=== PATIENT | female | born 1930 | race Caucasian/White ===

== ENCOUNTER 2017-08-29 18:00 | Inpatient (IN) | payer MEDICARE ==
[~2017-08-29] VITALS: Ht 149.9 cm; Wt 38.8 kg
[2017-08-29 20:38] LABS: BASOPHILS 0.1 % (0-2); EOSINOPHILS 0.1 % (0-7); HEMATOCRIT 30.8 % (36.0-48.0); HEMOGLOBIN 11.8 g/dL (12-16); IMMATURE GRANULOCYTES 0.3 % (0-5); LYMPHOCYTES 15.3 % (15-50); MCH 38.3 pg (26.0-34.0); MCHC 38.3 g/dL (31.0-37.0); NEUTROPHILS 72.2 % (40-80); PLATELET COUNT 81 10x3/uL (130-400); RBC 3.08 10x6/uL (4.00-5.40); RDW 14.3 % (11.5-14.5); WBC 9.8 10x3/uL (4.8-10.8)
[2017-08-29 20:39] LABS: ALBUMIN 2.9 g/dL (3.4-5.0); ALKALINE PHOSPHATASE 72 U/L (46-116); ALT (SGPT) 15 U/L (10-68); BILIRUBIN - TOTAL 0.11 mg/dL (0.2-1.3); CALC OSMOLALITY 303 mosm/kg (275-300); CALCIUM 8.7 mg/dL (8.5-10.1); CARBON DIOXIDE 17.3 mmol/L (21.0-32.0); CHLORIDE - SERUM 107 mmol/L (98-107); CREATININE - SERUM 2.1 mg/dL (0.6-1.3); GLUCOSE 122 mg/dL (74-106); POTASSIUM - SERUM 4.3 mmol/L (3.5-5.1); PROTEIN - SERUM 5.3 g/dL (6.4-8.2); SODIUM 137 mmol/L (136-145); UREA NITROGEN 93 mg/dL (7-18); eGFR NON AFRICAN AMERICAN 24 mL/min (90-120)
[2017-08-29 20:41] LABS: APPEARANCE CLEAR (CLEAR); BILIRUBIN NEGATIVE (NEGATIVE); COLOR YELLOW (YELLOW); GLUCOSE NEGATIVE (NEGATIVE); KETONE NEGATIVE (NEGATIVE); NITRITE NEGATIVE (NEGATIVE); PROTEIN TRACE mg/dL (NEGATIVE); UROBILINOGEN NORMAL (NORMAL)
[2017-08-29 20:50] LABS: TROPONIN-I < 0.017 ng/mL (0.000-0.060)
[2017-08-29 21:37] LABS: PLATELET ESTIMATE NORMAL
[2017-08-29] MEDS ORDERED: AUGMENTIN 875-11 TAB PO (21:55)
[2017-08-29] MEDS ORDERED: ARICEPT10 MG PO (21:56)
[2017-08-29] MEDS ORDERED: LOPRESSOR25 MG PO (21:57)
[2017-08-29] MEDS ORDERED: LISINOPRIL10 MG PO (21:58)
[2017-08-29] MEDS ORDERED: CALTRATE 600 M600 M1 PO (21:59)
[2017-08-29] MEDS ORDERED: FERROUS SULFAT325 MG PO (22:01)
[2017-08-29] MEDS ORDERED: GALZIN50 MG PO (22:01)
[2017-08-30 10:57] VITALS: BP 91/35
[2017-08-30 12:45] VITALS: BP 95/37
[2017-08-30 13:30] VITALS: BMI 17.7
[2017-08-30 16:01] LABS: BASOPHILS 0 % (0-2); EOSINOPHILS 0 % (0-7); HEMATOCRIT 29.1 % (36.0-48.0); HEMOGLOBIN 9.5 g/dL (12-16); IMMATURE GRANULOCYTES 0.1 % (0-5); LYMPHOCYTES 9.3 % (15-50); MCH 32.1 pg (26.0-34.0); MCHC 32.6 g/dL (31.0-37.0); MCV 98.3 fL (80.0-100.0); MEAN PLATELET VOLUME 12.8 fL (7.4-10.4); MONOCYTES 3.1 % (2-11); NEUTROPHILS 87.5 % (40-80); RBC 2.96 10x6/uL (4.00-5.40)
[2017-08-30 16:02] LABS: PLATELET COUNT 102 10x3/uL (130-400); WBC 7.1 10x3/uL (4.8-10.8)
[2017-08-30 16:16] LABS: ALBUMIN 2.6 g/dL (3.4-5.0); ANION GAP 15.1 mmol/L (8-16); BILIRUBIN - TOTAL 0.16 mg/dL (0.2-1.3); CALCIUM 7.7 mg/dL (8.5-10.1); CARBON DIOXIDE 18.2 mmol/L (21.0-32.0); PROTEIN - SERUM 5.3 g/dL (6.4-8.2)
[2017-08-30 16:17] LABS: CREATININE - SERUM 1.4 mg/dL (0.6-1.3); POTASSIUM - SERUM 3.3 mmol/L (3.5-5.1)
[2017-08-30 16:45] VITALS: BP 101/47
[2017-08-30 20:00] VITALS: BP 102/42
[2017-08-31] VITALS: BP 99/50
[2017-08-31 05:00] VITALS: BP 112/48
[2017-08-31 07:38] LABS: HEMATOCRIT 32.7 % (36.0-48.0); HEMOGLOBIN 11.1 g/dL (12-16); LYMPHOCYTES 4.4 % (15-50); MCH 32.6 pg (26.0-34.0); MCHC 33.9 g/dL (31.0-37.0); NEUTROPHILS 88.7 % (40-80); PLATELET COUNT 107 10x3/uL (130-400); RDW 14.4 % (11.5-14.5)
[2017-08-31 07:53] LABS: MCV 96.2 fL (80.0-100.0); WBC 16.3 10x3/uL (4.8-10.8)
[2017-08-31 07:58] LABS: ALBUMIN 3.1 g/dL (3.4-5.0); ANION GAP 19.7 mmol/L (8-16); BILIRUBIN - TOTAL 0.2 mg/dL (0.2-1.3); CALCIUM 8.5 mg/dL (8.5-10.1); CARBON DIOXIDE 17.7 mmol/L (21.0-32.0); CREATININE - SERUM 1.2 mg/dL (0.6-1.3); POTASSIUM - SERUM 3.4 mmol/L (3.5-5.1); PROTEIN - SERUM 5.6 g/dL (6.4-8.2)
[2017-08-31 09:03] VITALS: BP 109/46
[2017-08-31 13:53] VITALS: BP 110/48
[2017-08-31 16:20] VITALS: BP 115/46
[2017-09-01] VITALS (7 sets, daily range): BP systolic 124–134; BP diastolic 51–78; Ht 149.9 cm; Wt 38.8 kg
[2017-09-01 06:19] LABS: ANION GAP 17.8 mmol/L (8-16); BILIRUBIN - TOTAL 0.25 mg/dL (0.2-1.3); CALCIUM 8.8 mg/dL (8.5-10.1); CARBON DIOXIDE 16.9 mmol/L (21.0-32.0); POTASSIUM - SERUM 3.7 mmol/L (3.5-5.1); PROTEIN - SERUM 5.2 g/dL (6.4-8.2)
[2017-09-01 06:28] LABS: CREATININE - SERUM 1.6 mg/dL (0.6-1.3)
[2017-09-01 06:32] LABS: HEMATOCRIT 35.6 % (36.0-48.0); HEMOGLOBIN 11.8 g/dL (12-16); MCH 32.5 pg (26.0-34.0); MCHC 33.1 g/dL (31.0-37.0); MCV 98.1 fL (80.0-100.0); MEAN PLATELET VOLUME 12.4 fL (7.4-10.4); PLATELET COUNT 141 10x3/uL (130-400); RBC 3.63 10x6/uL (4.00-5.40); RDW 14.3 % (11.5-14.5); WBC 22.8 10x3/uL (4.8-10.8)
[2017-09-01 07:06] LABS: LYMPHOCYTES 5 % (15-50); MONOCYTES 5 % (2-11); NEUTROPHILS 88 % (40-80)
[2017-09-01 07:07] LABS: ANISOCYTOSIS OCC; PLATELET ESTIMATE NORMAL; TEAR DROP CELLS OCC
[2017-09-02 00:10] VITALS: BP 148/73
[2017-09-02 04:21] VITALS: BP 133/62
[2017-09-02 05:19] LABS: BASOPHILS 0.1 % (0-2); EOSINOPHILS 0 % (0-7); HEMATOCRIT 31.7 % (36.0-48.0); HEMOGLOBIN 10.6 g/dL (12-16); IMMATURE GRANULOCYTES 1.4 % (0-5); LYMPHOCYTES 5.9 % (15-50); MCH 32.3 pg (26.0-34.0); MCHC 33.4 g/dL (31.0-37.0); MCV 96.6 fL (80.0-100.0); MEAN PLATELET VOLUME 12.3 fL (7.4-10.4); MONOCYTES 3.6 % (2-11); PLATELET COUNT 137 10x3/uL (130-400); RBC 3.28 10x6/uL (4.00-5.40); RDW 14.1 % (11.5-14.5)
[2017-09-02 05:22] LABS: WBC 13.9 10x3/uL (4.8-10.8)
[2017-09-02 05:41] LABS: ALBUMIN 2.6 g/dL (3.4-5.0); ANION GAP 18.2 mmol/L (8-16); BILIRUBIN - TOTAL 0.3 mg/dL (0.2-1.3); CALCIUM 8.1 mg/dL (8.5-10.1); CARBON DIOXIDE 14.8 mmol/L (21.0-32.0); CREATININE - SERUM 1.4 mg/dL (0.6-1.3); PROTEIN - SERUM 4.7 g/dL (6.4-8.2)
[2017-09-02 08:34] VITALS: BP 114/61
[2017-09-02 12:05] VITALS: BP 108/61
[2017-09-02 16:07] VITALS: BP 129/60
[2017-09-02 20:00] VITALS: BP 107/62
[2017-09-03] VITALS: BP 119/65
[2017-09-03 04:00] VITALS: BP 132/68
[2017-09-03 05:51] LABS: BASOPHILS 0.1 % (0-2); EOSINOPHILS 0.2 % (0-7); HEMATOCRIT 30.8 % (36.0-48.0); HEMOGLOBIN 9.7 g/dL (12-16); IMMATURE GRANULOCYTES 2.8 % (0-5); LYMPHOCYTES 9.7 % (15-50); MCHC 31.5 g/dL (31.0-37.0); MEAN PLATELET VOLUME 11.7 fL (7.4-10.4); MONOCYTES 8.9 % (2-11); NEUTROPHILS 78.3 % (40-80); PLATELET COUNT 122 10x3/uL (130-400); RBC 3.03 10x6/uL (4.00-5.40); RDW 14.7 % (11.5-14.5); WBC 13.8 10x3/uL (4.8-10.8)
[2017-09-03 06:04] LABS: MCV 101.7 fL (80.0-100.0)
[2017-09-03 06:27] LABS: ALBUMIN 2.2 g/dL (3.4-5.0); BILIRUBIN - TOTAL 0.2 mg/dL (0.2-1.3); CALCIUM 7.7 mg/dL (8.5-10.1); CREATININE - SERUM 1.3 mg/dL (0.6-1.3); POTASSIUM - SERUM 3.4 mmol/L (3.5-5.1); PROTEIN - SERUM 4.1 g/dL (6.4-8.2)
[2017-09-03 06:29] LABS: ANION GAP 18.4 mmol/L (8-16)
[2017-09-03 09:30] VITALS: BP 119/57
[2017-09-03 12:07] VITALS: BP 131/66
[2017-09-03 16:12] VITALS: BP 128/64
[2017-09-03 22:07] VITALS: BP 124/68
[2017-09-04 00:25] VITALS: BP 140/60
[2017-09-04 04:48] LABS: BASOPHILS 0.1 % (0-2); EOSINOPHILS 0.7 % (0-7); HEMOGLOBIN 9.9 g/dL (12-16); IMMATURE GRANULOCYTES 4.6 % (0-5); MCH 32.2 pg (26.0-34.0); MCHC 31.9 g/dL (31.0-37.0); MEAN PLATELET VOLUME 11.5 fL (7.4-10.4); NEUTROPHILS 75.6 % (40-80); PLATELET COUNT 133 10x3/uL (130-400); RBC 3.07 10x6/uL (4.00-5.40); RDW 14.7 % (11.5-14.5); WBC 16.7 10x3/uL (4.8-10.8)
[2017-09-04 05:22] LABS: ALBUMIN 2.2 g/dL (3.4-5.0); BILIRUBIN - TOTAL 0.26 mg/dL (0.2-1.3); CALCIUM 8.1 mg/dL (8.5-10.1); CARBON DIOXIDE 19.3 mmol/L (21.0-32.0); PROTEIN - SERUM 4.4 g/dL (6.4-8.2)
[2017-09-04 05:25] LABS: POTASSIUM - SERUM 4.3 mmol/L (3.5-5.1)
[2017-09-04 05:54] VITALS: BP 117/67
[2017-09-04 08:44] VITALS: BP 136/72
[2017-09-04 12:34] VITALS: BP 134/68
[2017-09-04] MEDS ORDERED: LEVAQUIN250 MG PO (12:44)
[2017-09-04] MEDS ORDERED: TAMIFLU30 MG PO (12:45)
== END 2017-09-04 15:00 | disposition home health service (06) | DRG 190 ==
LOC: D.ER 18:00 → D.MS 20:41
PROVIDERS: Emergency Medicine; Family Medicine; Physician Assistant Medical
DX: J44.1 Chronic obstructive pulmonary disease with (acute) exacerbation (principal); J11.00 Influenza due to unidentified influenza virus with unspecified type of pneumonia; N17.9 Acute kidney failure, unspecified; E87.2 Acidosis; J44.0 Chronic obstructive pulmonary disease with (acute) lower respiratory infection; I95.9 Hypotension, unspecified; E86.0 Dehydration; R00.0 Tachycardia, unspecified

== ENCOUNTER → 2017-09-13 14:05 | Outpatient (CLI) | payer MEDICARE ==
[2017-09-01 03:55] VITALS: BMI 17.6
[~2017-09-13 14:05] MED LIST: ARICEPT10 MG PO; AUGMENTIN 875-11 TAB PO; CALTRATE 600 M600 M1 PO; FERROUS SULFAT325 MG PO; GALZIN50 MG PO; LEVAQUIN250 MG PO; LISINOPRIL10 MG PO; LOPRESSOR25 MG PO; TAMIFLU30 MG PO
== END | disposition home or self-care (01) ==
LOC: D.LABREF 14:05
DX: E86.0 Dehydration (principal); J98.4 Other disorders of lung; R50.9 Fever, unspecified

== ENCOUNTER → 2017-09-15 13:09 | Outpatient (CLI) | payer MEDICARE ==
[2017-09-01 03:55] VITALS: BMI 17.6
[2017-09-15 18:21] LABS: ALBUMIN 2.7 g/dL (3.4-5.0); ANION GAP 15.8 mmol/L (8-16); BILIRUBIN - TOTAL 0.35 mg/dL (0.2-1.3); CALCIUM 7.7 mg/dL (8.5-10.1); CARBON DIOXIDE 24.6 mmol/L (21.0-32.0); CREATININE - SERUM 1.3 mg/dL (0.6-1.3); POTASSIUM - SERUM 3.4 mmol/L (3.5-5.1); PROTEIN - SERUM 4.9 g/dL (6.4-8.2)
== END | disposition home or self-care (01) ==
LOC: D.LABREF 13:09
PROVIDERS: Family Medicine
DX: J11.1 Influenza due to unidentified influenza virus with other respiratory manifestations (principal); J18.9 Pneumonia, unspecified organism; J44.9 Chronic obstructive pulmonary disease, unspecified

== ENCOUNTER → 2017-10-19 12:27 | Outpatient (CLI) | payer MEDICARE ==
[2017-09-01 03:55] VITALS: BMI 17.6
[~2017-10-19 12:27] MED LIST changes: +DIFLUCAN100 MG PO; +FLAGYL500 MG PO; +FLORAJEN3 CAPS460 MG PO; +LEVAQUIN500 MG PO; +PEPCID20 MG PO
[2017-10-19 13:16] LABS: ANION GAP 14.3 mmol/L (8-16); CALCIUM 9.2 mg/dL (8.5-10.1); CARBON DIOXIDE 24.3 mmol/L (21.0-32.0); CREATININE - SERUM 1.1 mg/dL (0.6-1.3); POTASSIUM - SERUM 3.6 mmol/L (3.5-5.1)
[2017-10-20 08:18] LABS: VITAMIN D 25 HYDROXY 47.6 ng/mL (30.0-100.0)
== END | disposition home or self-care (01) ==
LOC: D.LABREF 12:27
PROVIDERS: Family Medicine
DX: J18.9 Pneumonia, unspecified organism (principal); E86.0 Dehydration; M62.81 Muscle weakness (generalized)

== ENCOUNTER 2017-12-10 11:04 | Inpatient (IN) | payer MEDICARE ==
[~2017-12-10] VITALS: Ht 149.9 cm; Wt 38.6 kg
[~2017-12-10 11:04] MED LIST changes: -DIFLUCAN100 MG PO; -FLAGYL500 MG PO; -FLORAJEN3 CAPS460 MG PO; -LEVAQUIN500 MG PO; -PEPCID20 MG PO
[2017-12-10 11:22] LABS: HEMATOCRIT 30.8 % (36.0-48.0); HEMOGLOBIN 9.8 g/dL (12-16); MCHC 31.8 g/dL (31.0-37.0); MCV 103.7 fL (80.0-100.0); MEAN PLATELET VOLUME 11.6 fL (7.4-10.4); PLATELET COUNT 227 10x3/uL (130-400); RBC 2.97 10x6/uL (4.00-5.40); RDW 15.5 % (11.5-14.5)
[2017-12-10 11:32] LABS: ALBUMIN 2.2 g/dL (3.4-5.0); ANION GAP 11.3 mmol/L (8-16); BILIRUBIN - TOTAL 0.48 mg/dL (0.2-1.3); CARBON DIOXIDE 26.8 mmol/L (21.0-32.0); CREATININE - SERUM 1.1 mg/dL (0.6-1.3); POTASSIUM - SERUM 3.1 mmol/L (3.5-5.1)
[2017-12-10 11:46] LABS: EOSINOPHILS 1 % (0-7); LYMPHOCYTES 17 % (15-50); MONOCYTES 2 % (2-11); NEUTROPHILS 80 % (40-80); PLATELET ESTIMATE NORMAL; PLATELET MORPHOLOGY GIANT PLTS PRESENT
[2017-12-10 12:04] LABS: INR 1.12 (0.85-1.17)
[2017-12-10 13:02] LABS: APTT < 22.0 SECONDS (22.8-39.4)
[2017-12-10 15:11] LABS: APPEARANCE CLOUDY (CLEAR); BILIRUBIN 2+ (NEGATIVE); COLOR DK YELLOW (YELLOW); GLUCOSE NEGATIVE (NEGATIVE); KETONE NEGATIVE (NEGATIVE); NITRITE NEGATIVE (NEGATIVE); PROTEIN TRACE mg/dL (NEGATIVE); UROBILINOGEN NORMAL (NORMAL)
[2017-12-10 15:14] LABS: BACTERIA MANY /hpf (NONE SEEN); EPITHELIAL CELLS 0-5 /hpf (0-5); HYALINE CAST 0-5 /lpf (NONE SEEN); MUCUS >1+ /lpf (NONE SEEN); WHITE CELLS - URINE >50 /hpf (0-5)
[2017-12-10 18:10] VITALS: BP 154/69; BMI 16.2
[2017-12-10 20:00] VITALS: BP 140/63
[2017-12-11 01:00] VITALS: BP 143/58
[2017-12-11 04:43] LABS: BASOPHILS 0.1 % (0-2); EOSINOPHILS 0.1 % (0-7); LYMPHOCYTES 13.6 % (15-50); MCH 32.9 pg (26.0-34.0); MCHC 32.1 g/dL (31.0-37.0); MCV 102.5 fL (80.0-100.0); MEAN PLATELET VOLUME 11.8 fL (7.4-10.4); MONOCYTES 8.4 % (2-11); NEUTROPHILS 76.8 % (40-80); RDW 15.5 % (11.5-14.5); WBC 18.1 10x3/uL (4.8-10.8)
[2017-12-11 04:48] LABS: HEMATOCRIT 24.3 % (36.0-48.0); HEMOGLOBIN 7.8 g/dL (12-16); PLATELET COUNT 167 10x3/uL (130-400); RBC 2.37 10x6/uL (4.00-5.40)
[2017-12-11 05:00] VITALS: BP 136/58
[2017-12-11 05:24] LABS: BILIRUBIN - TOTAL 0.3 mg/dL (0.2-1.3); CALCIUM 7.8 mg/dL (8.5-10.1); CARBON DIOXIDE 26.1 mmol/L (21.0-32.0); CREATININE - SERUM 1.1 mg/dL (0.6-1.3); PROTEIN - SERUM 4.5 g/dL (6.4-8.2)
[2017-12-11 06:06] LABS: ANION GAP 12.1 mmol/L (8-16); POTASSIUM - SERUM 3.2 mmol/L (3.5-5.1)
[2017-12-11 08:48] VITALS: BP 122/75
[2017-12-11 12:09] VITALS: Ht 149.9 cm; Wt 38.6 kg
[2017-12-11 13:24] VITALS: BP 126/62
[2017-12-11 15:16] LABS: HEMATOCRIT 25.5 % (36.0-48.0); HEMOGLOBIN 7.8 g/dL (12-16)
[2017-12-11 16:40] VITALS: BP 114/50
[2017-12-11 20:11] VITALS: BP 130/67
[2017-12-11 21:57] LABS: HEMATOCRIT 32.5 % (36.0-48.0); HEMOGLOBIN 10.6 g/dL (12-16)
[2017-12-12] VITALS (7 sets, daily range): BP systolic 92–152; BP diastolic 56–79
[2017-12-12 05:07] LABS: BASOPHILS 0.1 % (0-2); EOSINOPHILS 0.4 % (0-7); HEMATOCRIT 32.9 % (36.0-48.0); HEMOGLOBIN 10.8 g/dL (12-16); IMMATURE GRANULOCYTES 1.6 % (0-5); LYMPHOCYTES 12.9 % (15-50); MCH 31.9 pg (26.0-34.0); MCHC 32.8 g/dL (31.0-37.0); MEAN PLATELET VOLUME 12.5 fL (7.4-10.4); MONOCYTES 9.6 % (2-11); NEUTROPHILS 75.4 % (40-80); RDW 17.7 % (11.5-14.5); WBC 16.9 10x3/uL (4.8-10.8)
[2017-12-12 05:12] LABS: MCV 97.1 fL (80.0-100.0); PLATELET COUNT 119 10x3/uL (130-400); RBC 3.39 10x6/uL (4.00-5.40)
[2017-12-12 05:39] LABS: ALBUMIN 2.1 g/dL (3.4-5.0); BILIRUBIN - TOTAL 0.2 mg/dL (0.2-1.3); CALCIUM 7.6 mg/dL (8.5-10.1); CARBON DIOXIDE 25.5 mmol/L (21.0-32.0); POTASSIUM - SERUM 4.5 mmol/L (3.5-5.1); PROTEIN - SERUM 4.3 g/dL (6.4-8.2)
[2017-12-12 05:41] LABS: CREATININE - SERUM 0.8 mg/dL (0.6-1.3)
[2017-12-12 11:29] LABS: HEMATOCRIT 30.8 % (36.0-48.0); HEMOGLOBIN 10.5 g/dL (12-16)
[2017-12-12 16:47] LABS: HEMATOCRIT 37.7 % (36.0-48.0)
[2017-12-13 00:28] VITALS: BP 158/73
[2017-12-13 05:41] VITALS: BP 165/67
[2017-12-13 07:16] LABS: ALBUMIN 1.9 g/dL (3.4-5.0); ALKALINE PHOSPHATASE 59 U/L (46-116); ALT (SGPT) 13 U/L (10-68); CALCIUM 7.7 mg/dL (8.5-10.1); CHLORIDE - SERUM 112 mmol/L (98-107); CREATININE - SERUM 0.7 mg/dL (0.6-1.3); GLUCOSE 85 mg/dL (74-106); PROTEIN - SERUM 4.5 g/dL (6.4-8.2); SODIUM 143 mmol/L (136-145); eGFR NON AFRICAN AMERICAN 84 mL/min (90-120)
[2017-12-13 07:18] LABS: CALC OSMOLALITY 282 mosm/kg (275-300); UREA NITROGEN 11 mg/dL (7-18)
[2017-12-13 07:19] LABS: POTASSIUM - SERUM 3.5 mmol/L (3.5-5.1)
[2017-12-13 07:40] LABS: BASOPHILS 0.1 % (0-2); EOSINOPHILS 0.4 % (0-7); HEMOGLOBIN 11.1 g/dL (12-16); IMMATURE GRANULOCYTES 1.2 % (0-5); LYMPHOCYTES 10.1 % (15-50); MCH 32.1 pg (26.0-34.0); MCHC 32.6 g/dL (31.0-37.0); MCV 98.3 fL (80.0-100.0); MEAN PLATELET VOLUME 11.5 fL (7.4-10.4); MONOCYTES 10.6 % (2-11); NEUTROPHILS 77.6 % (40-80); PLATELET COUNT 135 10x3/uL (130-400); RBC 3.46 10x6/uL (4.00-5.40); RDW 16.8 % (11.5-14.5); WBC 14.1 10x3/uL (4.8-10.8)
[2017-12-13 09:16] VITALS: BP 139/73
[2017-12-13 12:54] VITALS: BP 158/90
[2017-12-13 17:05] VITALS: BP 107/65
[2017-12-13 21:25] VITALS: BP 154/66
[2017-12-14 00:50] VITALS: BP 159/70
[2017-12-14 04:50] VITALS: BP 146/98
[2017-12-14 06:05] LABS: BASOPHILS 0.1 % (0-2); EOSINOPHILS 0.4 % (0-7); HEMATOCRIT 36.8 % (36.0-48.0); HEMOGLOBIN 12.2 g/dL (12-16); IMMATURE GRANULOCYTES 1.1 % (0-5); LYMPHOCYTES 8.3 % (15-50); MCH 31.9 pg (26.0-34.0); MCHC 33.2 g/dL (31.0-37.0); MCV 96.3 fL (80.0-100.0); MEAN PLATELET VOLUME 11.8 fL (7.4-10.4); MONOCYTES 8.7 % (2-11); NEUTROPHILS 81.4 % (40-80); PLATELET COUNT 174 10x3/uL (130-400); RBC 3.82 10x6/uL (4.00-5.40); RDW 16.4 % (11.5-14.5); WBC 16.8 10x3/uL (4.8-10.8)
[2017-12-14 06:08] LABS: INR 1.07 (0.85-1.17); PROTIME 13.5 SECONDS (11.6-15.0)
[2017-12-14 06:20] LABS: ANION GAP 13.6 mmol/L (8-16); BILIRUBIN - TOTAL 0.22 mg/dL (0.2-1.3); CALCIUM 7.7 mg/dL (8.5-10.1); CARBON DIOXIDE 23.5 mmol/L (21.0-32.0); CREATININE - SERUM 0.8 mg/dL (0.6-1.3); POTASSIUM - SERUM 3.1 mmol/L (3.5-5.1)
[2017-12-14 08:08] VITALS: BP 138/69
[2017-12-14 15:45] VITALS: BP 159/81
[2017-12-14 20:00] VITALS: BP 146/57
[2017-12-15 01:00] VITALS: BP 173/65
[2017-12-15 05:11] VITALS: BP 155/66
[2017-12-15 06:16] LABS: BASOPHILS 0.1 % (0-2); EOSINOPHILS 0.5 % (0-7); HEMATOCRIT 33.7 % (36.0-48.0); HEMOGLOBIN 11.1 g/dL (12-16); IMMATURE GRANULOCYTES 1.1 % (0-5); LYMPHOCYTES 8.5 % (15-50); MCHC 32.9 g/dL (31.0-37.0); MCV 97.1 fL (80.0-100.0); MEAN PLATELET VOLUME 11.5 fL (7.4-10.4); MONOCYTES 8.9 % (2-11); NEUTROPHILS 80.9 % (40-80); RBC 3.47 10x6/uL (4.00-5.40); RDW 16.3 % (11.5-14.5); WBC 15.5 10x3/uL (4.8-10.8)
[2017-12-15 06:17] LABS: PLATELET COUNT 134 10x3/uL (130-400)
[2017-12-15 06:45] LABS: ALBUMIN 1.9 g/dL (3.4-5.0); ANION GAP 11.4 mmol/L (8-16); BILIRUBIN - TOTAL 0.3 mg/dL (0.2-1.3); CALCIUM 7.7 mg/dL (8.5-10.1); CARBON DIOXIDE 25.5 mmol/L (21.0-32.0); CREATININE - SERUM 0.8 mg/dL (0.6-1.3); POTASSIUM - SERUM 3.9 mmol/L (3.5-5.1); PROTEIN - SERUM 4.2 g/dL (6.4-8.2)
[2017-12-15 08:16] VITALS: BP 117/79
[2017-12-15 11:46] LABS: CEA 7.2 ng/mL (0.0-4.7)
[2017-12-15 11:56] VITALS: BP 159/66
[2017-12-15 15:48] VITALS: BP 150/67
[2017-12-15] MEDS ORDERED: LISINOPRIL10 MG PO (16:29)
[2017-12-15 20:00] VITALS: BP 112/68
[2017-12-16 01:00] VITALS: BP 160/79
[2017-12-16 04:30] VITALS: BP 145/67
[2017-12-16 10:05] VITALS: BP 150/85
[2017-12-16] MEDS ORDERED: DIFLUCAN100 MG PO (10:38)
[2017-12-16] MEDS ORDERED: LEVAQUIN500 MG PO (10:39)
[2017-12-16] MEDS ORDERED: PEPCID20 MG PO (10:41)
[2017-12-16] MEDS ORDERED: FLAGYL500 MG PO (10:41)
[2017-12-16] MEDS ORDERED: FLORAJEN3 CAPS460 MG PO (10:42)
[2017-12-16 12:22] VITALS: BP 165/81
== END 2017-12-16 17:30 | disposition home health service (06) | DRG 377 ==
LOC: D.ER 11:04 → D.EDHOLD 13:45 → D.M2 13:45
PROVIDERS: Emergency Medicine; Family Medicine; Internal Medicine Gastroenterology; Internal Medicine Nephrology
DX: K57.93 Diverticulitis of intestine, part unspecified, without perforation or abscess with bleeding (principal); R53.2 Functional quadriplegia; D62 Acute posthemorrhagic anemia; N17.9 Acute kidney failure, unspecified; N39.0 Urinary tract infection, site not specified; B37.49 Other urogenital candidiasis; K86.2 Cyst of pancreas; D50.9 Iron deficiency anemia, unspecified; J44.9 Chronic obstructive pulmonary disease, unspecified; E86.0 Dehydration; E87.6 Hypokalemia

== ENCOUNTER → 2017-12-21 16:40 | Outpatient (CLI) | payer MEDICARE ==
[2017-12-11 12:09] VITALS: BMI 16.1
[~2017-12-21 16:40] MED LIST changes: +DIFLUCAN100 MG PO; +FLAGYL500 MG PO; +FLORAJEN3 CAPS460 MG PO; +LEVAQUIN500 MG PO; +PEPCID20 MG PO
[2017-12-21 17:09] LABS: CALCIUM 7.5 mg/dL (8.5-10.1); CARBON DIOXIDE 30.2 mmol/L (21.0-32.0); CREATININE - SERUM 0.9 mg/dL (0.6-1.3)
[2017-12-21 17:26] LABS: POTASSIUM - SERUM 2.2 mmol/L (3.5-5.1)
== END | disposition home or self-care (01) ==
LOC: D.LABREF 16:40
PROVIDERS: Family Medicine
DX: E86.0 Dehydration (principal); R53.1 Weakness; J18.9 Pneumonia, unspecified organism